=== PATIENT | female | born 1945 | race Caucasian/White ===

== ENCOUNTER 2018-08-23 15:36 | Inpatient (IN) | payer MEDICARE ==
--- NOTE | 2018-08-23 16:25 | RAD ---
PA AND LATERAL VIEWS OF THE CHEST: 08/23/18 HISTORY: Dyspnea. FINDINGS: Comparison is made with exam of 07/12/16. The heart size is normal. No focal areas of consolidation, pneumothorax, rell pulmonary edema or ple ural effusions are seen. The aorta is tortuous. There are postop changes of bilateral rotator cuff re pair. Postop changes of posterior spinal fusion are also seen in the lumbar spine. IMPRESSION: No radiographic evidence of acute cardiopulmonary process. POS: MAJO
[2018-08-23 16:40] LABS: #Basophils 0.1 thou/uL (0.0-0.2); #Eosinphils 0.1 thou/uL (0.0-0.7); #Lymphocytes 3.9 thou/uL (1.20-3.40); #Monocytes 0.8 thou/uL (0.11-0.59); #Neutrophils 5.1 thou/uL (1.40-6.50); %Basophils 0.9 % (0.0-1.0); %Lymphocytes 38.8 % (21.0-51.0); %Monocytes 7.8 % (0.0-10.0); %Neutrophils 51.4 % (42.0-75.0); Hemoglobin 10.3 g/dL (12.0-16.0); Mean Corpuscular HGB CONC 30.8 g/dL (32.0-36.0); Mean Corpuscular Hemoglobin 28.8 pg (27.0-31.0); Mean Corpuscular Volume 93.4 fL (78.0-98.0); Mean Platelet Volume 8.4 fL (7.4-10.4); Platelet Count 285 thou/uL (130-400); RBC Distribution Width 14.6 % (11.5-14.5); Red Blood Cell (RBC) Count 3.59 mill/uL (4.20-5.40); White Blood Cell (WBC) Count 9.9 thou/uL (4.8-10.8)
[2018-08-23 16:53] LABS: ALT (SGPT) 31 U/L (8-55); AST (SGOT) 30 U/L (5-34); Albumin 3.9 g/dL (3.4-4.8); Alkaline Phosphatase 84 U/L (40-150); Anion Gap 14 mmol/L (10-20); BUN (Urea Nitrogen) 33 mg/dL (9.8-20.1); Bilirubin, Total 0.2 mg/dL (0.2-1.2); Calc. Creatinine Clearance 0 mL/min (70-130); Calcium 9.3 mg/dL (7.8-10.44); Carbon Dioxide 18 mmol/L (23-31); Chloride 115 mmol/L (98-107); Estimated GFR-MDRD 22; Globulin 2.7 g/dL (2.4-3.5); Glucose 110 mg/dL (83-110); Magnesium 1.7 mg/dL (1.6-2.6); Protein, Total 6.6 g/dL (6.0-8.3); Sodium 141 mmol/L (136-145)
[2018-08-23] MEDS ORDERED: methylPREDNISolone Sod Succ/PF 125 MG/2 ML VIAL ONE (16:55)
[2018-08-23] MEDS ORDERED: Sterile Water 10 ML ONE (16:56)
[2018-08-23 16:59] LABS: CKMB 2.5 ng/mL (0-6.6); Troponin I Less than 0.010 ng/mL (< 0.028)
[2018-08-23] MEDS ORDERED: Acetaminophen 500 MG TAB ONE (18:15)
[2018-08-23] MEDS ORDERED: Azithromycin 250 MG TAB ONE (18:15)
[2018-08-23 20:55] LABS: Troponin I Less than 0.010 ng/mL (< 0.028)
[2018-08-24 00:27] LABS: Troponin I Less than 0.010 ng/mL (< 0.028)
[2018-08-24] MEDS ORDERED: Acetaminophen 500 MG TAB PO SCH (02:15)
[2018-08-24 04:35] LABS: Potassium 5.4 mmol/L (3.5-5.1)
[2018-08-24] MEDS ORDERED: Ondansetron PF 4 MG/2 ML Vial IVP PRN (04:39)
[2018-08-24] MEDS ORDERED: Ondansetron ODT 4 MG TAB PO PRN (04:39)
--- NOTE | 2018-08-24 05:39 | HP ---
HISTORY OF PRESENT ILLNESS: This is a 73-year-old female with past medical history of hypertension, COPD, diverticulitis, presented with shortness of breath, which has been ongoing for the past 1 month . The shortness of breath has now become worse to the point that now she is not even able to take he r dog out, to feed her dog. The patient states that she gets shortness of breath by just walking acr oss the room and this is not her baseline. At her baseline, she is able to ambulate, walk her dog wi thout any difficulty, but now shortness of breath has become very significant that she had to get myron e of her friends to come and feed her dog. The patient also states that she gets paroxysmal nocturna l dyspnea, also has positive orthopnea, has to use 2 pillows to sleep. The patient states she become s very uncomfortable when she is lying on her back during the night. The patient denies any fever, nausea, vomiting, palpitations, chest pain, abdominal pain, hematuria, hematochezia or melena. However, the patient endorses shortness of breath with exertion and without exertion. REVIEW OF SYSTEMS: Positive for shortness of breath with exertion and without exertion. Otherwise, as documented in the HPI. All other systems were reviewed and are negative. PAST MEDICAL HISTORY: Significant for hypertension, COPD, diverticulitis. FAMILY HISTORY: Reviewed and not significant to this visit. PAST SURGICAL HISTORY: The patient had right finger surgery, back surgery x2 and the patient had cho lecystectomy and hysterectomy. The patient also had a right rotator cuff surgery on 02/2015. PSYCHIATRIC HISTORY: No previous psych history on file. SOCIAL HISTORY: The patient lives at home alone with her dog. The patient does not smoke, the patie nt does not drink alcohol and the patient does not use any illicit drugs. PHYSICAL EXAMINATION: VITAL SIGNS: Temperature 126/65, pulse of 45, respiratory rate of 20, temperature of 98.1, O2 sat of 96 on room air. GENERAL: The patient is lying in bed at 45 degree angle. The patient is speaking to me in full sent ences, does not appear to be in any acute distress. HEENT: Normocephalic, atraumatic. Pupils are equally round and reactive to light. Extraocular move ments are intact. No scleral icterus. No conjunctival pallor. NECK: Trachea is midline. Full range of motion. Supple. LUNGS: Clear to auscultation bilaterally at the posterior lungs. There are mild rales that can be a ppreciated in the lower lobes bilaterally. There are some mild wheezes at the anterior lung solitario. CARDIOVASCULAR: Positive S1, S2. Regular rate and rhythm. No murmurs, no gallops, no rubs apprecia keo. ABDOMEN: Soft, nontender, nondistended. Obese abdomen. No palpable masses. EXTREMITIES: The patient has 5/5 upper extremity strength and 5/5 lower extremity strength. The pat ient did have mild tenderness at the anterior martel of the right lower extremity. Otherwise, the gavin ent has good pulses bilaterally at the lower and upper extremities bilaterally. No edema noted. NEUROLOGIC: Cranial nerves II-XII grossly intact. No neurologic deficits noted. SKIN: Warm, dry and intact. No rashes noted. PSYCHIATRIC: The patient is alert and oriented x3, not in acute distress and the patient has normal affect. IMAGING: X-ray that was done showed no radiologic evidence of acute cardiopulmonary process. EKG shows junctional rhythm with a rate of 50. LABORATORY DATA: WBC is 9.9, hemoglobin is 10.3, hematocrit of 33.5 and platelet count is 285,000. Sodium 141, potassium is 6.0, chloride is 115, carbon dioxide of 18, anion gap of 14, BUN is 33, crea tinine is 2.16, glucose 110. BNP is 1485.5. Troponin is less than 0.010 x2. AST is 30, ALT is 31. ASSESSMENT AND PLAN: This is a 73-year-old female presenting with shortness of breath likely seconda ry to, 1. Acute congestive heart failure. At this point, we have consulted Cardiology. The patient will n eed an echo. We will follow up on the echo results. We will give the patient aspirin, lisinopril an d we will follow up with Cardiology's recommendations. 2. Acute kidney injury. The patient's creatinine is currently 2.16 and the patient's GFR is 22. Th e patient has chronic kidney disease stage 4. At this point, we will get Nephrology consult and we w ill get renal panel. We will give the patient IV hydration and we will monitor the patient and we wi ll follow up with Nephrology's recommendations. 3. History of chronic obstructive pulmonary disease. At this point, the patient has mild wheezes. We will give the patient DuoNeb treatments. We will monitor the patient closely. 4. Hypertension. We will monitor the patient's blood pressure closely and we will treat it accordin gly. 5. Deep venous thrombosis and gastrointestinal prophylaxis. This case has been dictated by Dr. Andrew Romano on patient Jagjit Manuel.
[2018-08-24] MEDS: Levothyroxine Sodium 112 MCG TAB PO SCH (05:44)
[2018-08-24] MEDS: Fish Oil 1,000 MG CAP PO SCH (08:39)
[2018-08-24] MEDS: Aspirin 81 mg Enteric Coated Tablet PO SCH (08:39)
[2018-08-24] MEDS: Calcium Carbonate + Vit D 1 TAB PO SCH (08:39)
[2018-08-24] MEDS: Famotidine 20 MG TAB PO SCH (08:40)
[2018-08-24] MEDS: Amlodipine 5 MG TAB PO SCH (08:40)
[2018-08-24] MEDS: Enoxaparin Sodium 30 MG/0.3 ML SYRINGE SC SCH (08:40)
[2018-08-24] MEDS: Multivitamin W/ Minerals 1 TAB PO SCH (08:41)
[2018-08-24] MEDS: Famotidine/PF 20 mg/2ml Vial SLOW IVP SCH (08:41)
[2018-08-24] MEDS: Acetaminophen 325 MG TAB PO PRN ×2 (08:47→16:53)
[2018-08-24] MEDS ORDERED: Lisinopril 2.5 MG TAB PO SCH (09:00)
[2018-08-24] MEDS ORDERED: Biotin [Biotin] 10,000 MCG PO SCH (09:00)
--- NOTE | 2018-08-24 12:31 | PDOC.PN ---
- Subjective Encounter Start Date: 08/24/18 Encounter Start Time: 07:40 Pt seen for followup re: CHF exacerbation. Denies chest pain. Shortness of breath is better. No nausea or vomiting. - Objective Resuscitation Status: Resuscitation Status DNR:Do Not Resuscitate MAR Reviewed: Yes Vital Signs & Weight: Vital Signs (12 hours) Temp Pulse Resp BP BP Pulse Ox 08/24/18 10:09 97 08/24/18 10:04 68 16 08/24/18 08:40 77 137/65 08/24/18 08:38 77 137/65 08/24/18 08:00 99 08/24/18 07:50 96.5 F L 77 16 137/65 99 08/24/18 05:41 98.2 F 80 18 143/67 H 100 Weight Weight 172 lb 9.6 oz Result Diagrams: 08/23/18 16:30 08/24/18 04:12 EKG Reviewed by me: Yes (Tele: NSR) Phys Exam - Physical Examination Obese HEENT: moist MMs, sclera anicteric, oral pharynx no lesions, 2+ tonsils Neck: no nodes, no JVD, supple, full ROM Augusto crackles Cardiovascular: RRR, no rub S1, S2 Gastrointestinal: soft, non-tender, no distention, positive bowel sounds Neurological: moves all 4 limbs Psychiatric: normal affect, A&O x 3 Dx/Plan (1) CHF exacerbation Code(s): I50.9 - HEART FAILURE, UNSPECIFIED Status: Acute Qualifiers: Heart failure type: unspecified Qualified Code(s): I50.9 - Heart failure, unspecified Comment: await 2D echo, continue diuretics (2) Hyperkalemia Code(s): E87.5 - HYPERKALEMIA Status: Acute Comment: administer kayexalate, recheck potassium level (3) HTN (hypertension) Code(s): I10 - ESSENTIAL (PRIMARY) HYPERTENSION Status: Chronic Comment: controlled (4) COPD (chronic obstructive pulmonary disease) Status: Chronic Comment: stable (5) CKD (chronic kidney disease) stage 4, GFR 15-29 ml/min Code(s): N18.4 - CHRONIC KIDNEY DISEASE, STAGE 4 (SEVERE) Status: Chronic Comment: follow creqatinine, lytes - Plan * . Review of Systems - Review of Systems Constitutional: negative: fever, chills, sweats, weakness, malaise Respiratory: SOB with Excertion. negative: Cough, Shortness of Breath, Pleuritic Pain, Wheezing Cardiovascular: orthopnea, paroxysmal nocturnal dyspnea. negative: chest pain, palpitations, edema, light headedness Gastrointestinal: negative: Nausea, Vomiting, Abdominal Pain, Diarrhea, Constipation, Melena, Hematochezia Genitourinary: negative: Dysuria, Frequency, Incontinence, Hematuria, Retention Musculoskeletal: negative: Neck Pain, Shoulder Pain, Arm Pain, Back Pain, Hand Pain, Leg Pain, Foot Pain - Medications/Allergies Allergies/Adverse Reactions: Allergies Allergy/AdvReac Type Severity Reaction Status Date / Time gabapentin Allergy Verified 08/23/18 22:28 peanut Allergy Verified 08/23/18 22:28 Penicillins Allergy Verified 08/23/18 22:21 Medications: Current Medications Acetaminophen (Tylenol) 1,000 mg PO HS [facility] Acetaminophen (Tylenol) 650 mg PO Q4H PRN PRN Reason: Headache/Fever/Mild Pain (1-3) Last Admin: 08/24/18 08:47 Dose: 650 mg Albumin Human (Albumin 25%) 25 gm IVPB Q6HR [facility] Stop: 08/27/18 12:01 Albuterol/Ipratropium (Duoneb) 3 ml NEB [id number] [facility] Last Admin: 08/24/18 10:04 Dose: 3 ml Amlodipine Besylate (Norvasc) 5 mg PO DAILY [facility] Last Admin: 08/24/18 08:40 Dose: 5 mg Aspirin (Ecotrin) 81 mg PO DAILY [facility] Last Admin: 08/24/18 08:39 Dose: 81 mg Calcium/Vitamin D (Caltrate 600 + Vit D) 1 tab PO DAILY [facility] Last Admin: 08/24/18 08:39 Dose: 1 tab Cholecalciferol (Vitamin D3) 2,000 units PO DAILY [facility] Last Admin: 08/24/18 08:39 Dose: 2,000 units Enoxaparin Sodium (Lovenox) 30 mg SC 0900 [facility] Last Admin: 08/24/18 08:40 Dose: 30 mg Famotidine (Pepcid) 20 mg SLOW IVP DAILY [facility] Last Admin: 08/24/18 08:41 Dose: Not Given Famotidine (Pepcid) 20 mg PO DAILY [facility] Last Admin: 08/24/18 08:40 Dose: 20 mg Fish Oil (Fish Oil) 1,000 mg PO DAILY [facility] Last Admin: 08/24/18 08:39 Dose: 1,000 mg Iron/Minerals/Multivitamins (Theragran M) 1 tab PO DAILY [facility] Last Admin: 08/24/18 08:41 Dose: 1 tab Levothyroxine Sodium (Synthroid) 112 mcg PO 0600 [facility] Last Admin: 08/24/18 05:44 Dose: 112 mcg Mometasone Furoate/Formoterol Fumar (Dulera 200 Mcg/5 Mcg Inhaler) 2 puff INH BID-RT [facility] Ondansetron HCl (Zofran Odt) 4 mg PO Q6H PRN PRN Reason: Nausea/Vomiting Ondansetron HCl (Zofran) 4 mg IVP Q6H PRN PRN Reason: Nausea/Vomiting Pantoprazole Sodium (Protonix) 40 mg PO DAILY [facility] Last Admin: 08/24/18 08:41 Dose: 40 mg Prednisone (Prednisone) 40 mg PO QAM-WM [facility] Simvastatin (Zocor) 10 mg PO QPM [facility] Sodium Chloride (Flush - Normal Saline) 10 ml IVF PRN PRN PRN Reason: Saline Flush
[2018-08-24] MEDS: Albumin 25% 25 GM/100 ML BOT IVPB SCH ×3 (12:39→23:30)
[2018-08-24] MEDS ORDERED: predniSONE 20 MG TAB PO SCH (12:45)
--- NOTE | 2018-08-24 14:29 | ULT ---
BILATERAL RENAL ULTRASOUND: Date: 08/24/18 HISTORY: Renal failure. FINDINGS/IMPRESSION: The right kidney measures 7.8 cm in length and the left kidney measures 9.4 cm in length. There is a 5.6 cm cyst arising from the left kidney. No hydronephrosis seen. The urinary bladder is not satisfac torily distended and has a volume of 64 mL. There is a hypoechoic area inferior to the right kidney measuring 4.3 x 2.9 cm. The possibility of th is representing bowel cannot be excluded. Further evaluation with CT scan would be helpful. POS: MAJO
[2018-08-24 16:37] LABS: Potassium 4.2 mmol/L (3.5-5.1)
--- NOTE | 2018-08-24 16:46 | CON ---
DATE OF CONSULTATION: 08/24/2018 Ms. Danielson is a 73-year-old white female who was admitted for shortness of breath. She has a known history of COPD. Chief complaint of progressive shortness of breath. Review of her medical history did not suggest she has underlying congestive heart failure. In addition, chest x-ray was said to be within normal, without any overt fluid or infiltrates per se. At the same time, she was noted to be in acute kidney injury. She had a mild hyperkalemia, was given Kayexalate with significant improvem ent of the potassium overnight. REVIEW OF SYSTEMS: No chest pain. Positive for shortness of breath, no nausea, no vomiting, no diar laura, no constipation, no productive cough, no fever or chills, no syncopal episode, no headache, no diplopia, no hematochezia, no melena, no hematemesis, no dysuria, no urinary frequency, no diplopia. Positive for joint pains. HOME MEDICATIONS: Showed the following, the patient was on Meloxicam 7.5 mg daily, amlodipine 5 mg d aily, aspirin 81 mg tablet daily, levothyroxine 112 mcg daily, pravastatin 20 mg q.p.m., omeprazole 4 0 mg daily, vitamin D3 2000 international units daily. Home medications include additional Zestril 2.5 mg tab once a day, Lovenox 30 mg daily, and Protonix 40 mg tab once a day. PAST MEDICAL HISTORY: 1. COPD. 2. Hypertension. 3. Hyperlipidemia. 4. Decreased vitamin D level. 5. The patient has GERD. 6. DJD. 7. Chronic low back pain. PAST SURGICAL HISTORY: 1. Status post right finger surgery. 2. Status post back surgery x2. 3. Status post cholecystectomy. 4. Status post hysterectomy. 5. Status post right rotator cuff surgery. SOCIAL HISTORY: The patient is a retired digital service engineer, previously was living in [place], but currently l fariha in [place], lives alone. No children. Education, college graduate - electrical project manager. The mike branham worked with [employer] as an digital service engineer. Smoked for 15 years x2.5 packs a day. No IV tari g abuse. No blood transfusion. Currently, no alcohol use. ALLERGIES: Unknown. TRAUMA: None. IMMUNIZATIONS: Up to date. HOSPITALIZATIONS: Please see past medical history. FAMILY HISTORY: No family history of ESRD. CHEST X-RAY: No CHF, no infiltrates. LABORATORY DATA: August 23, 2018, sodium 141, potassium 6, chloride 118, carbon dioxide 18, BUN 33 , creatinine 2.16, calcium 9.3, AST 30, ALT 31. BNP is 1485, albumin 3.9, troponin I less than 0.01. Repeat potassium of August 24, 2018, is 5.4. TSH is 1.8. ASSESSMENT AND PLAN: 1. Acute kidney injury - consider hemodynamically mediated renal dysfunction. This patient was taki ng Meloxicam and this could have aggravated the renal function. This can also cause the hyperkalemia . We will hold off Meloxicam. For the moment, hold off lisinopril. 2. Shortness of breath, multifactorial etiology. Consider the possibility of chronic obstructive pu lmonary disease exacerbation. BNP could be elevated in people with COPD, renal dysfunction as well a s congestive heart failure. 3. We will be starting this patient on albumin infusion IV q.6 hours. Renal ultrasound, urina lysis, and urine chemistries have been ordered. Agree with current management.
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
[2018-08-24 19:00] LABS: Bilirubin Negative (Negative); Blood, Urine Trace (Negative); Clarity CLEAR (Clear); Glucose, Urine (Dipstick) Negative (Negative); Leukocyte Moderate (Negative); Nitrite Negative (Negative); Protein, Urine (Dipstick) Trace mg/dL (Neg-Trace); Specific Gravity, Urine 1.018 (1.002-1.036); Urobilinogen 0.2 mg/dL (0.2-1.0)
[2018-08-24 19:02] LABS: Bacteria/HPF None Seen HPF (None Seen); Hyaline Casts/LPF 4-6 HYALINE CAST LPF (0-3 Hyaline); Pathc Cast-AUWi Flag 1.74 (0-2.49); WBC/HPF 21-50 HPF (0-3)
[2018-08-24] MEDS: Mometasone/Formoterol 120 PUFF INHALER INH SCH (19:10)
[2018-08-24 19:26] LABS: Creatinine, Urine 83.69 mg/dL (47-110)
[2018-08-24] MEDS: Simvastatin 5 MG TAB PO SCH (20:16)
[2018-08-24] MEDS: Acetaminophen 500 MG TAB PO SCH (20:16)
--- NOTE | 2018-08-24 22:22 | CON ---
DATE OF CONSULTATION: 08/24/2018 HISTORY OF PRESENT ILLNESS: Mar Danielson is a 73-year-old obese female who sees a local [facility] Doctor and was saw a eclectic doctor several day ago at the [facility] [place], who told her, she had severe COPD but apparently did not prescribe any medication. She now comes to the ER last night with symptoms o f cough, shortness of breath. She can barely walk 50 feet without getting likely dyspneic. She has been smoking up to two and half packs a day for most of her adult life; however, quit smoking about 7 -8 years ago. Previous history of pneumonia, no history of TB or asthma. On most days as noted, she can barely walk 50 to 100 feet without getting markedly short of breath. Symptoms are getting worse for the last 6 months. She denies any chest pain. PAST MEDICAL HISTORY: 1. Severe COPD 2. Diverticulitis. 3. Hypertension. PAST SURGICAL HISTORY: Apparently, has included back surgeries, cholecystectomy, hysterectomy, shoul steven surgery, finger surgery. HABITS: Alcohol is noted, none. Tobacco as noted. MEDICATIONS: From home includes Norvasc 5, Mobic 7.5, Synthroid 112, vitamins. ALLERGIES: PENICILLIN, PEANUTS, and GABAPENTIN. PHYSICAL EXAMINATION: GENERAL: Obese female appears to be in no acute distress, oxygen 98% on 2 liters. Pulse 68, blood p ressure 130/80, respiratory rate 18. CHEST: Decreased breath sounds without any wheezing. CARDIAC: Normal S1, S2, no gallops. ABDOMEN: Soft. No masses. LABORATORY: Creatinine is 2.16. White count 9.8, H and H 10 and 30, platelet count is normal. BNP is 1485. IMPRESSION: 1. Chronic obstructive pulmonary disease exacerbation, bronchitis. 2. Renal failure. 3. Probably diastolic dysfunction. PLAN: I have added low-dose prednisone, neb treatment, Dulera to her present regime. Follow PFT. We will follow. Consultation note of 70 minutes, 50% spent in direct patient care.
[2018-08-24] MEDS ORDERED: Melatonin 3 MG TAB PO SCH (23:15)
[2018-08-24] MEDS ORDERED: Acetaminophen/Codeine 30-300mg Tablet PO SCH (23:59)
[2018-08-25 05:09] LABS: #Lymphocytes 0.9 thou/uL (1.20-3.40); #Monocytes 0.5 thou/uL (0.11-0.59); #Neutrophils 5.4 thou/uL (1.40-6.50); %Basophils 0.1 % (0.0-1.0); %Eosinophils 0.3 % (0.0-10.0); %Lymphocytes 12.9 % (21.0-51.0); %Monocytes 6.8 % (0.0-10.0); %Neutrophils 79.9 % (42.0-75.0); Hemoglobin 8.1 g/dL (12.0-16.0); Mean Corpuscular HGB CONC 31.9 g/dL (32.0-36.0); Mean Corpuscular Hemoglobin 29.2 pg (27.0-31.0); Mean Corpuscular Volume 91.5 fL (78.0-98.0); Mean Platelet Volume 8.5 fL (7.4-10.4); Platelet Count 229 thou/uL (130-400); RBC Distribution Width 14.3 % (11.5-14.5); Red Blood Cell (RBC) Count 2.79 mill/uL (4.20-5.40); White Blood Cell (WBC) Count 6.7 thou/uL (4.8-10.8)
[2018-08-25 05:23] LABS: ALT (SGPT) 21 U/L (8-55); AST (SGOT) 17 U/L (5-34); Albumin 4.3 g/dL (3.4-4.8); Alkaline Phosphatase 57 U/L (40-150); Anion Gap 14 mmol/L (10-20); BUN (Urea Nitrogen) 29 mg/dL (9.8-20.1); Bilirubin, Total 0.2 mg/dL (0.2-1.2); Calc. Creatinine Clearance 42 mL/min (70-130); Calcium 9.3 mg/dL (7.8-10.44); Carbon Dioxide 19 mmol/L (23-31); Chloride 111 mmol/L (98-107); Estimated GFR-MDRD 34; Globulin 2.1 g/dL (2.4-3.5); Glucose 174 mg/dL (83-110); Potassium 4.1 mmol/L (3.5-5.1); Protein, Total 6.4 g/dL (6.0-8.3); Sodium 140 mmol/L (136-145)
[2018-08-25] MEDS: Albumin 25% 25 GM/100 ML BOT IVPB SCH ×7 (05:31→23:32)
[2018-08-25] MEDS: Levothyroxine Sodium 112 MCG TAB PO SCH (05:31)
[2018-08-25] MEDS: Mometasone/Formoterol 120 PUFF INHALER INH SCH ×2 (07:28→19:30)
[2018-08-25] MEDS: Famotidine/PF 20 mg/2ml Vial SLOW IVP SCH (08:46)
[2018-08-25] MEDS: predniSONE 20 MG TAB PO SCH (08:48)
[2018-08-25] MEDS: Enoxaparin Sodium 30 MG/0.3 ML SYRINGE SC SCH (08:49)
[2018-08-25] MEDS: Aspirin 81 mg Enteric Coated Tablet PO SCH (08:49)
[2018-08-25] MEDS: Calcium Carbonate + Vit D 1 TAB PO SCH (08:49)
[2018-08-25] MEDS: Amlodipine 5 MG TAB PO SCH (08:49)
[2018-08-25] MEDS: Fish Oil 1,000 MG CAP PO SCH (08:50)
[2018-08-25] MEDS: Multivitamin W/ Minerals 1 TAB PO SCH (08:50)
[2018-08-25] MEDS: KERATIN PO SCH (08:50)
[2018-08-25] MEDS: Famotidine 20 MG TAB PO SCH (08:50)
[2018-08-25] MEDS: BIOTIN PO SCH (08:50)
--- NOTE | 2018-08-25 08:58 | PRG ---
DATE OF SERVICE: 08/25/2018 ADDENDUM Renal ultrasound showed a hypoechoic lesion inferior to the right kidney. The possibility of a bowel cannot be excluded. No masses noted on the kidney, no evidence of obstruction.
--- NOTE | 2018-08-25 09:01 | PRG ---
DATE OF SERVICE: 08/25/2018 SERVICE: Renal Medicine. SUBJECTIVE: Ms. Danielson is a 73-year-old white female, who was seen for an acute kidney injury. Our initial evaluation suggested that this patient may simply be volume depleted. She was started on sa lt-poor albumin. In addition, her medications have been adjusted. Previously, the patient was on me loxicam at home and this was discontinued. No complaints today. She does make mention of occasional cough. OBJECTIVE: VITAL SIGNS: Blood pressure is 109/53, heart rate 87, respiratory rate 18, temperature 97.7, pulse o x 96%. GENERAL EXAM: Noted to be awake, comfortable, and not in overt distress. SKIN: Adequate turgor. HEENT: She has pinkish conjunctivae, anicteric sclerae. NECK: No neck mass, no carotid bruits, no JVD. CHEST: No deformities. LUNGS: Decreased breath sounds. Occasional wheezing. HEART: Normal sinus rhythm. No murmur, no gallops, no rubs. ABDOMEN: Globular, soft, nontender, no masses. EXTREMITIES: No edema, no deformities. Medications of 08/25/2018 were reviewed. LABORATORY DATA: Laboratories of 08/25/2018, white count 6.7, hemoglobin 8.1. Sodium 140, potassium 4.1, chloride 111, carbon dioxide 19, BUN 29, creatinine 1.52, glucose 174, calcium 9.3, albumin 4.3 . ASSESSMENT AND PLAN: 1. Acute kidney injury - hemodynamically-mediated renal dysfunction. Urine sediment did not show an y evidence of acute tubular necrosis. I would probably finish the salt-poor albumin. Continue to ho ld off the meloxicam. 2. Hyperkalemia, resolved. 3. Shortness of breath - secondary to a possible underlying chronic obstructive pulmonary disease, o n nebulizer treatment. We will recheck base met in a.m.
--- NOTE | 2018-08-25 09:10 | PRG ---
DATE OF SERVICE: 08/25/2018 This morning she is coughing, still short of breath. PHYSICAL EXAMINATION: VITAL SIGNS: Sats are 96 on 2 liters, respirations 18, temperature 97, blood pressure 109/53. CHEST: Chest reveals decreased breath sounds with wheezing. CARDIAC: Normal S1, S2, no gallops. ABDOMEN: Soft. LABORATORY DATA: Creatinine 1.52. GFR is 34. IMPRESSION: 1. Severe chronic obstructive pulmonary disease. 2. Coronary artery disease. 3. Renal failure. PLAN: Continue, nebs, Dulera, steroids. We will follow.
[2018-08-25] MEDS: Acetaminophen/Codeine 30-300mg Tablet PO PRN ×2 (13:10→21:02)
--- NOTE | 2018-08-25 15:00 | PDOC.PN ---
- Subjective Encounter Start Date: 08/25/18 Encounter Start Time: 07:40 Pt seen for followup re: COPD exacerbation. Reports cough, no sputum. - Objective Resuscitation Status: Resuscitation Status DNR:Do Not Resuscitate MAR Reviewed: Yes Vital Signs & Weight: Vital Signs (12 hours) Temp Pulse Resp BP BP Pulse Ox 08/25/18 14:02 82 16 08/25/18 12:00 98.1 F 80 18 117/56 L 96 08/25/18 11:45 98 08/25/18 08:49 87 110/54 L 08/25/18 07:41 97.7 F 87 18 109/53 L 96 08/25/18 07:40 96 08/25/18 07:28 79 16 08/25/18 07:21 100 08/25/18 07:19 79 16 08/25/18 03:27 97.8 F 86 18 106/51 L 96 Weight Weight 171 lb 6 oz I&O: 08/24/18 08/25/18 08/26/18 06:59 06:59 06:59 Intake Total 2100 Output Total 400 Balance 1700 Result Diagrams: 08/25/18 04:25 08/25/18 04:25 EKG Reviewed by me: Yes (Tele: NSR) Phys Exam - Physical Examination Obese HEENT: moist MMs, sclera anicteric, oral pharynx no lesions, 2+ tonsils Neck: no nodes, no JVD, supple, full ROM Respiratory: no rales, no rhonchi, wheezing present Cardiovascular: RRR, no rub S1, s2 Gastrointestinal: soft, non-tender, no distention, positive bowel sounds Neurological: moves all 4 limbs Psychiatric: normal affect, A&O x 3 Dx/Plan (1) COPD exacerbation Code(s): J44.1 - CHRONIC OBSTRUCTIVE PULMONARY DISEASE W (ACUTE) EXACERBATION Status: Acute Comment: Improving, continue oxygen and bronchodilators (2) CHF exacerbation Code(s): I50.9 - HEART FAILURE, UNSPECIFIED Status: Acute Qualifiers: Heart failure type: diastolic Qualified Code(s): I50.33 - Acute on chronic diastolic (congestive) heart failure Comment: continue furosemide (3) HTN (hypertension) Code(s): I10 - ESSENTIAL (PRIMARY) HYPERTENSION Status: Chronic Comment: controlled (4) CKD (chronic kidney disease) stage 4, GFR 15-29 ml/min Code(s): N18.4 - CHRONIC KIDNEY DISEASE, STAGE 4 (SEVERE) Status: Chronic Comment: creatinine improved to 1.52 (5) Hyperkalemia Code(s): E87.5 - HYPERKALEMIA Status: Resolved - Plan * . Review of Systems - Review of Systems Constitutional: negative: fever, chills, sweats, weakness, malaise Respiratory: Cough, SOB with Excertion. negative: Dry, Shortness of Breath, Hemoptysis, Pleuritic Pain, Sputum, Wheezing Cardiovascular: negative: chest pain, palpitations, orthopnea, paroxysmal nocturnal dyspnea, edema, light headedness Gastrointestinal: negative: Nausea, Vomiting, Abdominal Pain, Diarrhea, Constipation, Melena, Hematochezia Genitourinary: negative: Dysuria, Frequency, Incontinence, Hematuria, Retention - Medications/Allergies Allergies/Adverse Reactions: Allergies Allergy/AdvReac Type Severity Reaction Status Date / Time gabapentin Allergy Verified 08/23/18 22:28 peanut Allergy Verified 08/23/18 22:28 Penicillins Allergy Verified 08/23/18 22:21 Medications: Current Medications Acetaminophen (Tylenol) 1,000 mg PO HS [facility] Last Admin: 08/24/18 20:16 Dose: 1,000 mg Acetaminophen (Tylenol) 650 mg PO Q4H PRN PRN Reason: Headache/Fever/Mild Pain (1-3) Last Admin: 08/24/18 16:53 Dose: 650 mg Acetaminophen/Codeine Phosphate (Tylenol #3) 1 tab PO Q6H PRN PRN Reason: Moderate to Severe Pain (6-10) Last Admin: 08/25/18 13:10 Dose: 1 tab Albumin Human (Albumin 25%) 25 gm IVPB Q6HR [facility] Stop: 08/27/18 06:01 Last Admin: 08/25/18 13:15 Dose: 25 gm Albuterol/Ipratropium (Duoneb) 3 ml NEB [id number] [facility] Last Admin: 08/25/18 14:02 Dose: 3 ml Amlodipine Besylate (Norvasc) 5 mg PO DAILY [facility] Last Admin: 08/25/18 08:49 Dose: 5 mg Aspirin (Ecotrin) 81 mg PO DAILY [facility] Last Admin: 08/25/18 08:49 Dose: 81 mg Calcium/Vitamin D (Caltrate 600 + Vit D) 1 tab PO DAILY [facility] Last Admin: 08/25/18 08:49 Dose: 1 tab Cholecalciferol (Vitamin D3) 2,000 units PO DAILY [facility] Last Admin: 08/25/18 08:49 Dose: 2,000 units Enoxaparin Sodium (Lovenox) 30 mg SC 0900 [facility] Last Admin: 08/25/18 08:49 Dose: 30 mg Famotidine (Pepcid) 20 mg SLOW IVP DAILY [facility] Last Admin: 08/25/18 08:46 Dose: Not Given Famotidine (Pepcid) 20 mg PO DAILY [facility] Last Admin: 08/25/18 08:50 Dose: 20 mg Fish Oil (Fish Oil) 1,000 mg PO DAILY [facility] Last Admin: 08/25/18 08:50 Dose: 1,000 mg Iron/Minerals/Multivitamins (Theragran M) 1 tab PO DAILY [facility] Last Admin: 08/25/18 08:50 Dose: 1 tab Levothyroxine Sodium (Synthroid) 112 mcg PO 0600 [facility] Last Admin: 08/25/18 05:31 Dose: 112 mcg Mometasone Furoate/Formoterol Fumar (Dulera 200 Mcg/5 Mcg Inhaler) 2 puff INH BID-RT [facility] Last Admin: 08/25/18 07:28 Dose: 2 puff Ondansetron HCl (Zofran Odt) 4 mg PO Q6H PRN PRN Reason: Nausea/Vomiting Ondansetron HCl (Zofran) 4 mg IVP Q6H PRN PRN Reason: Nausea/Vomiting Pantoprazole Sodium (Protonix) 40 mg PO DAILY [facility] Last Admin: 08/25/18 08:50 Dose: 40 mg Biotin 10,000 Mcg (With Keratin 100mg) 0 each PO DAILY [facility] Last Admin: 08/25/18 08:50 Dose: 1 each Prednisone (Prednisone) 40 mg PO QAM-WM [facility] Last Admin: 08/25/18 08:48 Dose: 40 mg Simvastatin (Zocor) 10 mg PO QPM [facility] Last Admin: 08/24/18 20:16 Dose: 10 mg Sodium Chloride (Flush - Normal Saline) 10 ml IVF PRN PRN PRN Reason: Saline Flush Last Admin: 08/24/18 20:18 Dose: 10 ml
[2018-08-25] MEDS: Simvastatin 5 MG TAB PO SCH (21:03)
[2018-08-25] MEDS: Acetaminophen 500 MG TAB PO SCH (21:05)
[2018-08-25] MEDS ORDERED: Diabetic Tussin 200 MG/10 ML UDCUP PO SCH (23:00)
[2018-08-25] MEDS ORDERED: Melatonin 3 MG TAB PO SCH (23:00)
[2018-08-26 05:17] LABS: Anion Gap 13 mmol/L (10-20); BUN (Urea Nitrogen) 32 mg/dL (9.8-20.1); Calc. Creatinine Clearance 47 mL/min (70-130); Carbon Dioxide 25 mmol/L (23-31); Chloride 110 mmol/L (98-107); Estimated GFR-MDRD 39; Glucose 149 mg/dL (83-110); Potassium 4.2 mmol/L (3.5-5.1); Sodium 144 mmol/L (136-145)
[2018-08-26] MEDS: Levothyroxine Sodium 112 MCG TAB PO SCH (05:38)
[2018-08-26] MEDS: Albumin 25% 25 GM/100 ML BOT IVPB SCH ×2 (05:39→12:22)
[2018-08-26 06:28] VITALS: BMI 33.5
[2018-08-26] MEDS: Famotidine/PF 20 mg/2ml Vial SLOW IVP SCH (08:16)
[2018-08-26] MEDS: predniSONE 20 MG TAB PO SCH (09:07)
[2018-08-26] MEDS: Amlodipine 5 MG TAB PO SCH (09:07)
[2018-08-26] MEDS: Calcium Carbonate + Vit D 1 TAB PO SCH (09:08)
[2018-08-26] MEDS: KERATIN PO SCH (09:08)
[2018-08-26] MEDS: Enoxaparin Sodium 30 MG/0.3 ML SYRINGE SC SCH (09:08)
[2018-08-26] MEDS: BIOTIN PO SCH (09:08)
[2018-08-26] MEDS: Multivitamin W/ Minerals 1 TAB PO SCH (09:08)
[2018-08-26] MEDS: Aspirin 81 mg Enteric Coated Tablet PO SCH (09:08)
[2018-08-26] MEDS: Fish Oil 1,000 MG CAP PO SCH (09:08)
[2018-08-26] MEDS: Acetaminophen/Codeine 30-300mg Tablet PO PRN ×3 (09:09→23:17)
--- NOTE | 2018-08-26 09:26 | PRG ---
DATE OF SERVICE: 08/26/2018 SUBJECTIVE: Ms. Danielson is a 73-year-old white female who was seen for her acute kidney injury. The patient had a hemodynamically mediated renal dysfunction. She was also taking Meloxicam/NSAIDs and this was discontinued. Renal function is slowly improving. No other complaints today. She was also seen by Pulmonary Medicine, due to the COPD exacerbation. Her coughing is improved this morning. PHYSICAL EXAMINATION: VITAL SIGNS: Blood pressure is 149/65, heart rate 77, respiratory rate 20, temperature 97.9, pulse o x 97%. GENERAL: Noted to be awake, alert, comfortable, not in distress. SKIN: Adequate turgor. HEENT: Slightly pale conjunctivae, anicteric sclerae. NECK: No neck mass, no carotid bruits, no JVD. CHEST: No deformities. LUNGS: Decreased breath sounds, no wheezing. HEART: Normal sinus rhythm. No murmur, no gallops or rubs. ABDOMEN: Globular, soft, nontender. EXTREMITIES: Trace edema. MEDICATIONS: 08/26/2018 - Reviewed. LABORATORY DATA: 08/25/2018 - White count 6.7, hemoglobin 8.1. 08/26/2018 - Sodium 144, potassium 4.2, chloride 110, carbon dioxide 25, BUN 32, creatinine 1.35, glu cose 149, calcium 10. TSH 0.36. ASSESSMENT AND PLAN: 1. Acute kidney injury - hemodynamically mediated renal dysfunction. Please note that the patient's creatinine peaked at 2.16 and currently is now at 1.35. She continues to receive salt poor albumin. Continue to hold off all NSAIDs. 2. Anemia, observe. Recheck CBC and base met in a.m. 3. Chronic obstructive pulmonary disease exacerbation, on neb treatment. Pulmonary following.
[2018-08-26] MEDS: Famotidine 20 MG TAB PO SCH (09:32)
--- NOTE | 2018-08-26 10:49 | PRG ---
DATE OF SERVICE: 08/26/2018 SUBJECTIVE: She is awake, alert, responsive. She is better. OBJECTIVE: VITAL SIGNS: Sats are 97% on 2 liters, temperature is 97, blood pressure . CHEST: Decreased breath sounds, no wheezing. CARDIAC: Normal S1, S2. No gallops. ABDOMEN: Soft, no mass. IMPRESSION: Chronic obstructive pulmonary disease, renal failure. PLAN: She can be discharged home on tapering dose of steroids, neb treatments and inhalers. She can be seen in the office in about a month.
--- NOTE | 2018-08-26 13:02 | PDOC.CTH ---
Cardiology Progress Note - Subjective The pt seen and examined. No overnight events. No cardiac complaints. - Objective Vital Signs Temp Pulse Pulse Pulse Resp BP BP 08/26/18 12:21 98.2 F 80 18 08/26/18 10:08 76 79 153/70 H 115/53 L 08/26/18 09:07 77 08/26/18 07:25 08/26/18 07:22 97.9 F 77 20 08/26/18 07:16 08/26/18 07:14 80 16 08/26/18 04:00 97.8 F 72 20 BP Pulse Ox Pulse Ox Pulse Ox 08/26/18 12:21 158/68 H 96 08/26/18 10:08 95 97 08/26/18 09:07 08/26/18 07:25 97 08/26/18 07:22 149/65 H 97 08/26/18 07:16 99 08/26/18 07:14 08/26/18 04:00 146/67 H 96 Weight 177 lb 6.4 oz 08/25/18 08/26/18 08/27/18 06:59 06:59 06:59 Intake Total 2100 1240 Output Total 400 1050 Balance 1700 190 - Physical Examination General/Neuro: alert & oriented x3 Neck: no JVD present Lungs: other: (diminished at bases) Heart: RRR Abdomen: soft Extremities: other: (no edema) - Telemetry Telemetry Rhythm: SR - Labs Result Diagrams: 08/25/18 04:25 08/26/18 04:30 Troponin/CKMB CK-MB (CK-2) 2.5 ng/mL (0-6.6) 08/23/18 16:30 Troponin I Less than 0.010 ng/mL (< 0.028) 08/23/18 23:38 - Assessment/Plan 1. COPD exacerbation - Cont. 2.5LNC; managed by emergency management director 2. Acute on Chronic diastolic HF - stable without diuretic; not on Bblocker due to hx of severe COPD. Not on PAU/ARB due to Hx of CKD. 3. HTN - stable with current med 4. PVD with hx of Lt CEA 5. CKD stage 4 - managed by automotive service technician 6. Hyperlipidemia - On statin 7. Anemia - Hgb lebel today was 8 from 10. 8. Hx of GI bleed - MAR reviewed * Echo on 08/24/18 showed EF 60-65%, mild MR, mild TN. Review of Systems - Review of Systems Constitutional: reports: no symptoms reported EENTM: reports: no symptoms reported Respiratory: reports: no symptoms reported Cardiac (ROS): reports: no symptoms reported ABD/GI: reports: no symptoms reported : reports: no symptoms reported Musculoskeletal: reports: no symptoms reported
[2018-08-26] MEDS: Mometasone/Formoterol 120 PUFF INHALER INH SCH ×2 (13:55→19:32)
[2018-08-26] MEDS: Benzonatate 100 MG CAP PO SCH ×2 (14:18→21:15)
--- NOTE | 2018-08-26 14:36 | PDOC.PN ---
- Subjective Encounter Start Date: 08/26/18 Encounter Start Time: 08:00 Pt seen for followup re: COPD exacerbation. Feels better. No chest pain. - Objective Resuscitation Status: Resuscitation Status DNR:Do Not Resuscitate MAR Reviewed: Yes Vital Signs & Weight: Vital Signs (12 hours) Temp Pulse Pulse Pulse Resp BP BP 08/26/18 13:54 80 16 08/26/18 12:21 98.2 F 80 18 08/26/18 10:08 76 79 153/70 H 115/53 L 08/26/18 09:07 77 08/26/18 07:25 08/26/18 07:22 97.9 F 77 20 08/26/18 07:16 08/26/18 07:14 80 16 08/26/18 04:00 97.8 F 72 20 BP Pulse Ox Pulse Ox Pulse Ox 08/26/18 13:54 08/26/18 12:21 158/68 H 96 08/26/18 10:08 95 97 08/26/18 09:07 08/26/18 07:25 97 08/26/18 07:22 149/65 H 97 08/26/18 07:16 99 08/26/18 07:14 08/26/18 04:00 146/67 H 96 Weight Weight 177 lb 6.4 oz I&O: 08/25/18 08/26/18 08/27/18 06:59 06:59 06:59 Intake Total 2100 1240 Output Total 400 1050 Balance 1700 190 Result Diagrams: 08/27/18 05:08 08/27/18 05:08 EKG Reviewed by me: Yes (Tele: sinus tachycardia) Phys Exam - Physical Examination Obese HEENT: moist MMs Neck: supple Respiratory: clear to auscultation bilateral Cardiovascular: RRR Gastrointestinal: soft Neurological: moves all 4 limbs Psychiatric: normal affect Dx/Plan (1) COPD exacerbation Code(s): J44.1 - CHRONIC OBSTRUCTIVE PULMONARY DISEASE W (ACUTE) EXACERBATION Status: Acute Comment: Improving, still needing supplemental oxygen (2) HTN (hypertension) Code(s): I10 - ESSENTIAL (PRIMARY) HYPERTENSION Status: Chronic Comment: controlled (3) CKD (chronic kidney disease) stage 4, GFR 15-29 ml/min Code(s): N18.4 - CHRONIC KIDNEY DISEASE, STAGE 4 (SEVERE) Status: Chronic Comment: creatinine improved to 1.35 (4) Hyperkalemia Code(s): E87.5 - HYPERKALEMIA Status: Resolved (5) CHF exacerbation Code(s): I50.9 - HEART FAILURE, UNSPECIFIED Status: Ruled-out Qualifiers: Heart failure type: diastolic Qualified Code(s): I50.33 - Acute on chronic diastolic (congestive) heart failure - Plan * . Review of Systems - Review of Systems Respiratory: SOB with Excertion. negative: Cough, Shortness of Breath, Pleuritic Pain, Wheezing Cardiovascular: negative: chest pain, palpitations, orthopnea, paroxysmal nocturnal dyspnea, edema, light headedness - Medications/Allergies Allergies/Adverse Reactions: Allergies Allergy/AdvReac Type Severity Reaction Status Date / Time gabapentin Allergy Verified 08/23/18 22:28 peanut Allergy Verified 08/23/18 22:28 Penicillins Allergy Verified 08/23/18 22:21 Medications: Current Medications Acetaminophen (Tylenol) 1,000 mg PO HS [facility] Last Admin: 08/25/18 21:05 Dose: Not Given Acetaminophen (Tylenol) 650 mg PO Q4H PRN PRN Reason: Headache/Fever/Mild Pain (1-3) Last Admin: 08/24/18 16:53 Dose: 650 mg Acetaminophen/Codeine Phosphate (Tylenol #3) 1 tab PO Q6H PRN PRN Reason: Moderate to Severe Pain (6-10) Last Admin: 08/26/18 09:09 Dose: 1 tab Albuterol/Ipratropium (Duoneb) 3 ml NEB [id number] [facility] Last Admin: 08/26/18 13:54 Dose: 3 ml Amlodipine Besylate (Norvasc) 5 mg PO DAILY [facility] Last Admin: 08/26/18 09:07 Dose: 5 mg Aspirin (Ecotrin) 81 mg PO DAILY [facility] Last Admin: 08/26/18 09:08 Dose: 81 mg Benzonatate (Tessalon) 100 mg PO TID [facility] Last Admin: 08/26/18 14:18 Dose: 100 mg Calcium/Vitamin D (Caltrate 600 + Vit D) 1 tab PO DAILY [facility] Last Admin: 08/26/18 09:08 Dose: 1 tab Cholecalciferol (Vitamin D3) 2,000 units PO DAILY [facility] Last Admin: 08/26/18 09:07 Dose: 2,000 units Enoxaparin Sodium (Lovenox) 30 mg SC 0900 [facility] Last Admin: 08/26/18 09:08 Dose: 30 mg Famotidine (Pepcid) 20 mg SLOW IVP DAILY [facility] Last Admin: 08/26/18 08:16 Dose: Not Given Famotidine (Pepcid) 20 mg PO DAILY [facility] Last Admin: 08/26/18 09:32 Dose: Not Given Fish Oil (Fish Oil) 1,000 mg PO DAILY [facility] Last Admin: 08/26/18 09:08 Dose: 1,000 mg Iron/Minerals/Multivitamins (Theragran M) 1 tab PO DAILY [facility] Last Admin: 08/26/18 09:08 Dose: 1 tab Levothyroxine Sodium (Synthroid) 112 mcg PO 0600 [facility] Last Admin: 08/26/18 05:38 Dose: 112 mcg Mometasone Furoate/Formoterol Fumar (Dulera 200 Mcg/5 Mcg Inhaler) 2 puff INH BID-RT [facility] Last Admin: 08/26/18 13:55 Dose: Not Given Ondansetron HCl (Zofran Odt) 4 mg PO Q6H PRN PRN Reason: Nausea/Vomiting Ondansetron HCl (Zofran) 4 mg IVP Q6H PRN PRN Reason: Nausea/Vomiting Pantoprazole Sodium (Protonix) 40 mg PO DAILY [facility] Last Admin: 08/26/18 09:08 Dose: 40 mg Biotin 10,000 Mcg (With Keratin 100mg) 0 each PO DAILY [facility] Last Admin: 08/26/18 09:08 Dose: 1 each Prednisone (Prednisone) 40 mg PO QAM-WM [facility] Last Admin: 08/26/18 09:07 Dose: 40 mg Simvastatin (Zocor) 10 mg PO QPM [facility] Last Admin: 08/25/18 21:03 Dose: 10 mg Sodium Chloride (Flush - Normal Saline) 10 ml IVF PRN PRN PRN Reason: Saline Flush Last Admin: 08/24/18 20:18 Dose: 10 ml
[2018-08-26] MEDS: Simvastatin 5 MG TAB PO SCH (21:15)
[2018-08-26] MEDS: Acetaminophen 500 MG TAB PO SCH (21:16)
[2018-08-26] MEDS ORDERED: Melatonin 3 MG TAB PO SCH (23:00)
[2018-08-27 05:55] LABS: #Lymphocytes 1.3 thou/uL (1.20-3.40); #Monocytes 0.8 thou/uL (0.11-0.59); #Neutrophils 5.3 thou/uL (1.40-6.50); %Basophils 0.1 % (0.0-1.0); %Eosinophils 0.4 % (0.0-10.0); %Lymphocytes 17.7 % (21.0-51.0); %Monocytes 10.5 % (0.0-10.0); %Neutrophils 71.3 % (42.0-75.0); Hemoglobin 8.5 g/dL (12.0-16.0); Mean Corpuscular HGB CONC 31.5 g/dL (32.0-36.0); Mean Corpuscular Hemoglobin 29.1 pg (27.0-31.0); Mean Corpuscular Volume 92.3 fL (78.0-98.0); Mean Platelet Volume 9.2 fL (7.4-10.4); Platelet Count 232 thou/uL (130-400); RBC Distribution Width 14.4 % (11.5-14.5); Red Blood Cell (RBC) Count 2.93 mill/uL (4.20-5.40); White Blood Cell (WBC) Count 7.4 thou/uL (4.8-10.8)
[2018-08-27] MEDS: Levothyroxine Sodium 112 MCG TAB PO SCH (06:12)
[2018-08-27 06:21] LABS: Anion Gap 15 mmol/L (10-20); BUN (Urea Nitrogen) 39 mg/dL (9.8-20.1); Calc. Creatinine Clearance 48 mL/min (70-130); Calcium 10.2 mg/dL (7.8-10.44); Carbon Dioxide 22 mmol/L (23-31); Chloride 109 mmol/L (98-107); Estimated GFR-MDRD 39; Glucose 133 mg/dL (83-110); Potassium 4.3 mmol/L (3.5-5.1); Sodium 142 mmol/L (136-145)
[2018-08-27] MEDS: Acetaminophen/Codeine 30-300mg Tablet PO PRN (06:50)
[2018-08-27] MEDS: Mometasone/Formoterol 120 PUFF INHALER INH SCH (06:51)
--- NOTE | 2018-08-27 08:46 | PDOC.CTH ---
Cardiology Progress Note - Subjective The pt seen and examined. No overnight events. No cardiac complaints. She has not walked with RA at this moment. - Objective Vital Signs Temp Pulse Resp BP Pulse Ox 08/27/18 08:00 97.6 F 88 18 131/62 93 L 08/27/18 06:50 67 14 98 08/27/18 02:50 98.0 F 69 13 137/62 93 L 08/27/18 02:48 96 08/27/18 00:39 73 12 08/26/18 23:15 98.2 F 70 17 146/64 H 95 08/26/18 21:15 94 L 08/26/18 21:12 98 F 78 20 145/64 H 94 L Weight 176 lb 3.2 oz 08/26/18 08/27/18 08/28/18 06:59 06:59 06:59 Intake Total 1240 1030 Output Total 1050 2075 Balance 190 -1045 - Physical Examination General/Neuro: alert & oriented x3 Neck: no JVD present Lungs: other: (diminished at bases) Heart: RRR Abdomen: soft Extremities: other: (No edema) - Telemetry Telemetry Rhythm: SR - Labs Result Diagrams: 08/27/18 05:08 08/27/18 05:08 Troponin/CKMB CK-MB (CK-2) 2.5 ng/mL (0-6.6) 08/23/18 16:30 Troponin I Less than 0.010 ng/mL (< 0.028) 08/23/18 23:38 - Assessment/Plan 1. COPD exacerbation - stable with RA; managed by cafe aide 2. Acute on Chronic diastolic HF - stable without diuretic; not on Bblocker due to hx of severe COPD. Not on PAU/ARB due to Hx of CKD. 3. HTN - stable with current med 4. PVD with hx of Lt CEA 5. CKD stage 4 - managed by dress fitter 6. Hyperlipidemia - On statin 7. Anemia - Hgb lebel today was 8 from 10. 8. Hx of GI bleed - MAR reviewed * Echo on 08/24/18 showed EF 60-65%, mild MR, mild CT. Review of Systems - Review of Systems Constitutional: reports: no symptoms reported EENTM: reports: no symptoms reported Respiratory: reports: no symptoms reported Cardiac (ROS): reports: no symptoms reported ABD/GI: reports: no symptoms reported : reports: no symptoms reported Musculoskeletal: reports: no symptoms reported Skin: reports: no symptoms reported Neurological: reports: no symptoms reported
[2018-08-27] MEDS ORDERED: predniSONE 20 MG TAB PO SCH (09:24)
--- NOTE | 2018-08-27 09:33 | PRG ---
DATE OF SERVICE: 08/27/2018 SUBJECTIVE: She is better, less cough, less shortness of breath, less wheezing. OBJECTIVE: VITAL SIGNS: Blood pressure is 131/62, sats are 93% on room air, respiration rate 18, temperature 97 . CHEST: Decreased breath without any wheezing. CARDIAC: Normal S1, S2. No gallops. ABDOMEN: Soft, no masses. IMPRESSION: 1. Chronic obstructive pulmonary disease, severe. 2. Severe deconditioning. 3. Normal ejection fraction. PLAN: Pulmonary wade, she can be discharged home. Follow up with primary care physician. Taper patrick roids over a period of 2 weeks.
[2018-08-27] MEDS: Fish Oil 1,000 MG CAP PO SCH (09:57)
[2018-08-27] MEDS: Multivitamin W/ Minerals 1 TAB PO SCH (09:57)
[2018-08-27] MEDS: Calcium Carbonate + Vit D 1 TAB PO SCH (09:59)
[2018-08-27] MEDS: Benzonatate 100 MG CAP PO SCH ×2 (09:59→14:35)
[2018-08-27] MEDS: Amlodipine 5 MG TAB PO SCH (10:00)
[2018-08-27] MEDS: Famotidine 20 MG TAB PO SCH (10:00)
[2018-08-27] MEDS: Aspirin 81 mg Enteric Coated Tablet PO SCH (10:00)
[2018-08-27] MEDS: Enoxaparin Sodium 30 MG/0.3 ML SYRINGE SC SCH (10:00)
[2018-08-27] MEDS: BIOTIN PO SCH (10:02)
[2018-08-27] MEDS: KERATIN PO SCH (10:02)
--- NOTE | 2018-08-27 10:02 | PRG ---
DATE OF SERVICE: 08/27/2018 SUBJECTIVE: Ms. Danielson is a 73-year-old white female who was seen by the Renal Service for acute k idney injury on top of her chronic renal failure. She most likely had a superimposed hemodynamically mediated renal dysfunction. Creatinine has improved and stabilized. Most recent creatinine is now 2.15 and it has been stable. She was taking an NSAID which has been discontinued. No complaints of chest pain or shortness of breath. PHYSICAL EXAMINATION: VITAL SIGNS: Blood pressure is 131/62, heart rate 88, respiratory rate 18, temperature 97.6, pulse o ximetry 93%. GENERAL: Noted to be awake, alert, comfortable, not in overt distress. SKIN: Adequate turgor. HEENT: She has pinkish conjunctivae, anicteric sclerae. NECK: No neck mass, no carotid bruits, no JVD. CHEST: No deformities. LUNGS: Clear breath sounds, no wheezing, no crackles. HEART: Normal sinus rhythm. No murmur, no gallops or rubs. ABDOMEN: Globular, soft, nontender, no masses. EXTREMITIES: No edema, no deformities. MEDICATIONS: 08/27/2018 - Reviewed. LABORATORY: 08/27/2018 - White count 7.4, hemoglobin 8.5. Sodium 142, potassium 4.3, chloride 109, carbon dioxide 22, BUN 39, creatinine 1.35, calcium 10.2. ASSESSMENT AND PLAN: 1. Acute kidney injury on top of her chronic renal failure, stabilizing renal function. Creatinine has leveled off at 1.35. She is currently at stage 3 chronic renal failure. Continue supportive car e. Continue to hold off NSAIDs and any PAU inhibitors or ARB. 2. Shortness of breath, much improved. The patient has chronic obstructive pulmonary disease on Duo Neb. We will follow up with this patient as an outpatient in the outpatient Renal Clinic.
[2018-08-27] MEDS: predniSONE 20 MG TAB PO SCH (10:48)
--- NOTE | 2018-08-27 11:28 | DIS ---
DATE OF ADMISSION: 08/23/2018 DATE OF DISCHARGE: 08/27/2018 PRIMARY CARE PROVIDER: Hardik Watson M.D. DISCHARGE DIAGNOSES: 1. Chronic obstructive pulmonary disease exacerbation. 2. Congestive heart failure. 3. Acute kidney injury. CONDITION OF PATIENT ON THE DAY OF DISCHARGE: Stable. I assessed Ms. Danielson on the day of discharg e. She denies any chest pain or shortness of breath. Vital signs are stable. S1 and S2 are heard, regular. Lungs and clear to auscultation bilaterally. DISCHARGE MEDICATIONS: Prednisone taper over 2 weeks, acetaminophen/diphenhydramine 500/25 mg 2 tabl ets at bedtime, Norvasc 5 mg daily, aspirin 81 mg daily, Biotin 10,000 mcg daily, calcium 600 plus vi tamin D 1 tablet daily, vitamin D3 2000 units daily, Synthroid 112 mcg daily, Centrum Adults Multivit amins 1 tablet daily, omega 3 fish oil 1 capsule daily, omeprazole 40 mg daily, pravastatin 20 mg nay ry evening. CONSULTATIONS DURING THIS HOSPITALIZATION: Pulmonology, Dr. Cam Nephrology, Dr. Newton and Cardiology, Dr. Patterson. HOSPITAL COURSE: Ms. Danielson is a pleasant 73-year-old lady who was admitted to [facility] on 08/23/2018 for shortness of breath. Please refer to Dr. Romano's history and physic al note dated 08/24/2018 for further details. She was seen by Cardiology Service. A 2D echocardiogr am showed left ventricular ejection fraction of 60%-65% and mild mitral regurgitation. She was also seen by Pulmonology Service. It was felt that her presentation was secondary to chronic obstructive pulmonary disease exacerbation. She improved with oxygen, steroids, and bronchodilators. She also had acute renal insufficiency at the time of admission, with a creatinine level of 2.16. It improved to 1.35 on the day of discharge. On the day of discharge, Ms. Danielson has sodium 142, potassium 4.3, creatinine 1.35, white count 7400 , hemoglobin 8.5, and platelet count 232,000. Many thanks for allowing me to participate in your patient's care. Please feel free to contact me wi th any questions or concerns. DISCHARGE DESTINATION: Home. TOTAL AMOUNT OF TIME SPENT COORDINATING THIS DISCHARGE: 33 minutes.
[2018-08-27 14:29] VITALS: BP 143/65; TEMP 98
[2018-08-27] MEDS ORDERED: Melatonin 3 MG TAB PO SCH (21:00)
== END 2018-08-27 15:26 | disposition home or self-care (01) | DRG 682 ==
LOC: ERS 15:36 → 2NO 20:39
PROVIDERS: ADMIT Internal Medicine; ATTEND Internal Medicine
DX: N17.9 Acute kidney failure, unspecified (principal); I50.33 Acute on chronic diastolic (congestive) heart failure; K57.92 Diverticulitis of intestine, part unspecified, without perforation or abscess without bleeding; I13.0 Hypertensive heart and chronic kidney disease with heart failure and stage 1 through stage 4 chronic kidney disease, or unspecified chronic kidney disease; J44.1 Chronic obstructive pulmonary disease with (acute) exacerbation; N18.4 Chronic kidney disease, stage 4 (severe); E87.5 Hyperkalemia; I73.9 Peripheral vascular disease, unspecified; D64.9 Anemia, unspecified; K21.9 Gastro-esophageal reflux disease without esophagitis; M54.5 Low back pain; G89.29 Other chronic pain; F17.210 Nicotine dependence, cigarettes, uncomplicated; Z88.0 Allergy status to penicillin; Z91.010 Allergy to peanuts; Z90.49 Acquired absence of other specified parts of digestive tract
CPT/HCPCS: 36415; 71046; 76770; 80048; 80053; 81001; 82553; 82570; 83735; 83880; 84132; 84300; 84443; 84484; 85025; 90471; 90662; 93005; 93306; 93798; 94640; 94664; 96374; A4216; G0008; J1650; J2930; J7506; J7620; P9047; Q0162; S0028